=== PATIENT | male | born 1990 | race Caucasian/White ===

== ENCOUNTER 2017-04-13 10:43 | Emergency (ER) | payer OTHER ==
[2017-04-13 11:07] VITALS: BP 133/78; PULSE 85; RESP 16; TEMP 97.7; O2SAT 97
--- NOTE | 2017-04-13 11:23 | EDPHY ---
H & P Stated Complaint: abd bldge after exercised. pt self reduced. Time Seen by Provider: 04/13/17 11:09 HPI/ROS: Chief complaint: Abdominal wall bulge while exercising History of present illness: This is a 26-year-old male who presents to the emergency department for evaluation of abdominal wall bulge while exercising. Patient states he was on his back doing leg lifts when he noted a small bulge just above his belly button. It was mildly uncomfortable. He was able to push the bulge back down. Symptoms have resolved. He states at this time he feels well. There is no actual abdominal pain. No nausea, vomiting or diarrhea, no urinary symptoms. He currently has no symptoms. He has never had similar. - Personal History Current Tetanus/Diphtheria Vaccine: Yes Current Tetanus Diphtheria and Acellular Pertussis (TDAP): Yes - Medical/Surgical History Hx Asthma: No Hx Chronic Respiratory Disease: No Hx Diabetes: No Hx Cardiac Disease: No Hx Renal Disease: No Hx Cirrhosis: No Hx Alcoholism: No Hx HIV/AIDS: No Hx Splenectomy or Spleen Trauma: No Other PMH: pmh:none. psh:knee - Social History Smoking Status: Never smoked - Physical Exam Exam: General Appearance: Alert and no distress. Eyes: Pupils equal and round no injection. Respiratory: Chest is nontender, lungs are clear to auscultation. Cardiac: regular rate and rhythm. Gastrointestinal: Bowel sounds are normal. Abdomen is soft, nondistended, nontender. No hernias appreciated on inspection until he does a leg left and a small umbilical versus ventral wall hernias noted. It self reduces when his legs go down. No evidence of incarcerated or strangulated hernia. Musculoskeletal: Extremities have full range of motion and are nontender. Skin: No rashes or lesions. Constitutional: Initial Vital Signs Temperature (C) 36.5 C 04/13/17 11:04 Heart Rate 85 04/13/17 11:04 Respiratory Rate 16 04/13/17 11:04 Blood Pressure 133/78 H 04/13/17 11:04 O2 Sat (%) 97 04/13/17 11:04 O2 Delivery Mode Room Air Allergies/Adverse Reactions: No Known Allergies Allergy (Unverified 04/13/17 11:06) Home Medications: Medication Instructions Recorded NK [No Known Home Meds] 04/13/17 Medical Decision Making ED Course/Re-evaluation: Patient seen under the supervision of my secondary supervising physician Dr. Dyllan Rubio. Patient presents to the emergency department for a bulging abdominal wall when he does leg lifts. He appears to have either an umbilical or ventral wall hernia. Itself reduce easily on its own. He has a benign abdominal exam. No evidence of complications such as incarceration or strangulated hernia. He is appropriate for discharge home. He is asked to refrain from exercises that exacerbate his problem until he can follow up with General surgery for discussion about further care. He is given referral information. Strict return precautions are given. Patient voiced understanding and agreement with plan. Differential Diagnosis: Included but not limited to umbilical hernia, ventral wall hernia, complications such as incarceration or strangulation Departure - Departure Disposition: Home, Routine, Self-Care Clinical Impression: Abdominal wall hernia Condition: Good Instructions: Umbilical Hernia (ED), Ventral Hernia (ED) Additional Instructions: Follow up with General surgery for continued evaluation and care If symptoms recur attempt a push it back into place, if it is painful or you are unable to push it back into place return immediately to the emergency room for recheck Referrals: NONE *PRIMARY CARE P,. [Primary Care Provider] - As per Instructions Petar Flores MD [Medical Doctor] - As per Instructions Stand Alone Forms: Work Excuse
== END 2017-04-13 11:44 | disposition home or self-care (01) ==
DX: K43.9 Ventral hernia without obstruction or gangrene (principal)